=== PATIENT | male | born 1995 | race African-American/Black ===

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

== ENCOUNTER 2018-10-02 08:36 | Emergency (ER) | payer BC ==
--- NOTE | 2018-10-02 09:08 | EKG REPORT ---
SEVERITY:- BORDERLINE ECG - SINUS TACHYCARDIA BORDERLINE RIGHT AXIS DEVIATION : Confirmed by: Moody Macias MD 02-Oct-2018 09:08:15
[2018-10-02] MEDS ORDERED: ONDANSETRON HCL INJ/PF 4 MG/2 ML SDV IV ONE (09:09)
[2018-10-02] MEDS: NORMAL SALINE 1000 ML 1,000 ML IV PRN ×2 (09:12→10:03)
--- NOTE | 2018-10-02 09:12 | ER Document Report ---
ED General - General Chief Complaint: Nausea/Vomiting/Diarrhea Stated Complaint: VOMITING,DIARRHEA Time Seen by Provider: 10/02/18 08:59 Primary Care Provider: FEI RENAE MD [Primary Care Provider] - Follow up as needed TRAVEL OUTSIDE OF THE [place] IN LAST 30 DAYS: No - HPI Notes: Patient is a 22-year-old male who presents to the emergency department for evaluation of chest pain, heart racing, nausea, vomiting, diarrhea. Symptoms began 48 hours ago. The patient's younger sister was actually seen here earlier in the week with vomiting and diarrhea. In the last 24 hours the patient admits to 3 episodes of nonbloody, nonbilious emesis. He has had 5 episodes of watery diarrhea. He denies any recent travel. No abnormal ingestions. No recent antibiotic therapy. He is tried some Pepto-Bismol at home without relief. This morning he developed a sharp chest pain. He points to an isolated area in the left chest, just lateral to the manubrium. Nothing seems to make it better or worse. He denies any significant shortness of breath or cough. He has not used his rescue inhaler as of late. - Related Data Allergies/Adverse Reactions: amoxicillin trihydrate [From Augmentin] Allergy (Verified 12/02/15 11:10) Potassium Clavulanate * [From Augmentin] Allergy (Verified 12/02/15 11:10) chocolate Allergy (Uncoded 12/02/15 11:10) peanut butter Allergy (Uncoded 12/02/15 11:10) Past Medical History - General Information source: Patient, Parent - Social History Smoking Status: Never Smoker Drug Abuse: None Family History: Arthritis, COPD, CVA, DM, Hypertension, Malignancy, Other - CHF Pulmonary Medical History: Reports: Hx Asthma Renal/ Medical History: Denies: Hx Peritoneal Dialysis Skin Medical History: Reports Hx Eczema Psychiatric Medical History: Reports: Hx Attention Deficit Hyperactivity Disorder - Immunizations Immunizations up to date: Yes Hx Diphtheria, Pertussis, Tetanus Vaccination: Yes Review of Systems - Review of Systems Constitutional: No symptoms reported EENT: No symptoms reported Cardiovascular: See HPI Respiratory: No symptoms reported Gastrointestinal: See HPI Genitourinary: No symptoms reported Musculoskeletal: No symptoms reported Skin: No symptoms reported Neurological/Psychological: No symptoms reported Physical Exam - Vital signs Vitals: Temp Pulse Resp BP Pulse Ox 98.6 F 140 H 20 144/72 H 96 10/02/18 08:40 10/02/18 08:40 10/02/18 08:40 10/02/18 08:40 10/02/18 08:40 - Notes Notes: Vital signs reviewed, please refer to chart. Head is normocephalic, atraumatic. Pupils equal round, reactive to light. Neck is supple without meningismus. Heart is tachycardic with normal S1-S2. Lungs are clear to auscultation bilaterally. Abdomen is soft, nontender, normoactive bowel sounds throughout. Extremities without cyanosis, clubbing. Posterior calves are nontender. Peripheral pulses are equal. Skin is warm and dry. Patient is awake, alert, neurological exam is nonfocal. Course - Re-evaluation Re-evalutation: 10/02/18 09:12 Patient presents emergency department for evaluation of chest pain, difficulty breathing, nausea, vomiting, diarrhea. His chest pain is reproducible. Given his vomiting, I do strongly suspect musculoskeletal etiology. His abdomen is nontender. He is found to be tachycardic, so was placed on the monitor. 2 L of normal saline are ordered, as well as Zofran. We will continue to monitor. 10/02/18 12:20 Patient remained tachycardic, although improved with loose though, after 2 L. Third liter was ordered, and given his chest pain as well as tachycardia, decision was made to proceed with CT angiogram. CT of the chest failed to reveal any abnormality. Patient is feeling improved. Currently he is still mildly tachycardic at 107. I explained to mother I do not have a clear etiology for this. Again he has improved with the IV fluids. We will send him home with nausea medication, instructions to stay well-hydrated, and follow-up with his doctor on Wednesday. He is to return to the ED with worsening or new concerning symptoms of any sort. - Vital Signs Vital signs: Temp Pulse Resp BP Pulse Ox 98.6 F 140 H 16 144/87 H 99 10/02/18 08:40 10/02/18 08:40 10/02/18 12:46 10/02/18 12:46 10/02/18 12:46 - Laboratory Result Diagrams: 10/02/18 09:05 10/02/18 09:05 Laboratory results interpreted by me: 10/02/18 10/02/18 09:05 09:05 Seg Neutrophils % 83.8 H Lymphocytes % 7.2 L Absolute Neutrophils 8.5 H Sodium 134.1 L - Diagnostic Test Radiology reviewed: Reports reviewed Radiology results interpreted by me: 10/02/18 12:22 Chest/Abdomen CTA 10/02/18 11:09 IMPRESSION: NORMAL CTA OF THE CHEST. NO PULMONARY EMBOLI. - EKG Interpretation by Me Additional EKG results interpreted by me: 10/02/18 12:22 Sinus tachycardia with a rate of 119 bpm. Right axis deviation. No acute ST changes concerning for ischemia or infarction. Unchanged from prior study with the exception of rate. Normal EKG given age. Discharge - Discharge Clinical Impression: Chest wall pain, Sinus tachycardia Nausea and vomiting Qualifiers: Vomiting type: unspecified Vomiting Intractability: non-intractable Qualified Code(s): R11.2 - Nausea with vomiting, unspecified Diarrhea Qualifiers: Diarrhea type: presumed infectious Qualified Code(s): R19.7 - Diarrhea, unspecified Condition: Stable Disposition: HOME, SELF-CARE Instructions: Acetaminophen, Diarrhea, Nonspecific ([facility]), Intravenous (IV) Fluids ([facility]), Sinus Tachycardia ([facility]), Vomiting ([facility]) Additional Instructions: Rest, stay well-hydrated. Zofran as needed for severe nausea. Clear liquids only, advance to bland diet. Follow-up with this week. If you develop worsening or new concerning symptoms of any sort, return immediately to the emergency department for reevaluation. Prescriptions: Ondansetron [Zofran Odt 4 mg Tablet] 1 tab PO Q4H PRN #15 tab.rapdis PRN Reason: For Nausea/Vomiting Forms: Return to School Referrals: FEI RENAE MD [Primary Care Provider] - Follow up as needed
[2018-10-02 09:20] LABS: ABSOLUTE LYMPHOCYTES (AUTO) 0.7 10^3/uL (0.5-4.7); ABSOLUTE MONOCYTES (AUTO) 0.9 10^3/uL (0.1-1.4); ABSOLUTE NEUT (AUTO) 8.5 10^3/uL (1.7-8.2); BASOPHILS % (AUTO) 0.2 % (0-2); EOSINOPHILS % (AUTO) 0.2 % (0-6); HEMOGLOBIN 15.5 g/dL (13.5-17.0); LYMPHOCYTES % (AUTO) 7.2 % (13-45); MEAN CORPUSCULAR HEMOGLOBIN 28.9 pg (27.0-33.4); MEAN CORPUSCULAR HGB CONC 34.4 g/dL (32.0-36.0); MEAN CORPUSCULAR VOLUME 84 fl (80-97); MONOCYTES % (AUTO) 8.6 % (3-13); PLATELET COUNT 262 10^3/uL (150-450); RED BLOOD COUNT 5.35 10^6/uL (4.35-5.55); RED CELL DISTRIBUTION WIDTH 12.7 % (11.5-14.0); SEGMENTED NEUTROPHILS % (AUTO) 83.8 % (42-78); TOTAL CELLS COUNTED % (AUTO) 100 %; WHITE BLOOD COUNT 10.1 10^3/uL (4.0-10.5)
[2018-10-02 09:36] LABS: ALBUMIN 4.4 g/dL (3.5-5.0); ALKALINE PHOSPHATASE 47 U/L (38-126); ANION GAP 13 (5-19); ASPARTATE AMINO TRANSFERASE 35 U/L (17-59); BILIRUBIN,DIRECT 0.4 mg/dL (0.0-0.4); BILIRUBIN,TOTAL 0.9 mg/dL (0.2-1.3); BLOOD UREA NITROGEN 12 mg/dL (7-20); CALCIUM 9.3 mg/dL (8.4-10.2); CARBON DIOXIDE 23 mmol/L (22-30); CHLORIDE 98 mmol/L (98-107); GLUCOSE 95 mg/dL (75-110); POTASSIUM 3.7 mmol/L (3.6-5.0); TOTAL PROTEIN 7.3 g/dL (6.3-8.2)
[2018-10-02] MEDS ORDERED: ACETAMINOPHEN 325 MG TABLET PO ONE (09:48)
[2018-10-02] MEDS ORDERED: KETOROLAC TROMETHAMINE INJ/PF 30 MG/1 ML SDV IV ONE (09:48)
[2018-10-02] MEDS ORDERED: NORMAL SALINE 1000 ML 1,000 ML IV ONE (11:09)
--- NOTE | 2018-10-02 11:43 | RADIOLOGY REPORT (SQ) ---
EXAM DESCRIPTION: CTA CHEST COMPLETED DATE/TIME: 10/02/2018 11:33 am REASON FOR STUDY: right chest pain, tachycardia COMPARISON: Chest radiograph TECHNIQUE: CT scan of the chest performed using helical scanning technique with dynamic intravenous contrast injection. Images reviewed with lung, soft tissue and bone windows. Reconstructed coronal and sagittal MPR images reviewed. Additional 3 dimensional post-processing performed to develop Maximal Intensity Projection images ([place] P). All images stored on PACS. All CT scanners at this facility use dose modulation, iterative reconstruction, and/or weight based d osing when appropriate to reduce radiation dose to as low as reasonably achievable (ALARA). [facility]: Dose Right [facility]: CareDose [facility]: Dose Right [facility]: Teradose 4D [facility]: Neck Tie Koozies CONTRAST TYPE AND DOSE: contrast/concentration: Isovue 350.00 mg/ml; Total Contrast Delivered: 60.0 ml; Total Saline Delivered: 80.0 ml Contrast bolus adequate for pulmonary arteries and aorta. RENAL FUNCTION: None required. The patient is less than 50 years old. RADIATION DOSE: CT Rad equipment meets quality standard of care and radiation dose reduction techniq ues were employed. CTDIvol: 6.6 - 15.8 mGy. DLP: 550 mGy-cm. . LIMITATIONS: None. FINDINGS: LUNGS AND PLEURA: No masses, infiltrates, or pneumothorax. No pleural effusions or pleura l calcifications. AORTA AND GREAT VESSELS: No aneurysm. Contrast bolus not optimized for the aorta. HEART: No pericardial effusion. No significant coronary artery calcifications. PULMONARY ARTERIES: No emboli visualized in the main pulmonary arteries or the segmental branches. HILAR AND MEDIASTINAL STRUCTURES: No identified masses or abnormal nodes. HARDWARE: None in the chest. UPPER ABDOMEN: No significant findings. Limited exam. THYROID AND OTHER SOFT TISSUES: No masses. No adenopathy. BONES: No acute or significant finding. 3D MIPS: Confirm above findings. OTHER: No other significant finding. IMPRESSION: NORMAL CTA OF THE CHEST. NO PULMONARY EMBOLI. COMMENT: Quality ID # [id number]: Final reports with documentation of one or more dose reduction techniques (e.g., Automated exposure control, adjustment of the mA and/or kV according to patient size, use of iterative reconstruction technique) TECHNICAL DOCUMENTATION: JOB ID: [id number] [employer]- All Rights Reserved Reading location - IP/workstation name: [email or web address]
[2018-10-02 12:48] VITALS: BP 144/87
== END 2018-10-02 12:49 | disposition home or self-care (01) ==
LOC: ER 08:36
DX: R11.2 Nausea with vomiting, unspecified (principal); R19.7 Diarrhea, unspecified; R07.89 Other chest pain; R00.0 Tachycardia, unspecified; Z88.0 Allergy status to penicillin; Z91.018 Allergy to other foods; J45.909 Unspecified asthma, uncomplicated
CPT/HCPCS: 93005; 99284; 96361; 96374; 96375; 36415; 83690; 85025; 80053; 71275; 93010; J1885; J2405; J7030